=== PATIENT | male | born 1995 | race Caucasian/White ===

== ENCOUNTER 2023-01-30 19:08 | Emergency (ER) | payer SELFPAY ==
[~2023-01-30] VITALS: Ht 172.7 cm; Wt 78.0 kg
[2023-01-30 19:09] VITALS: BP 128/74
== END 2023-01-31 02:07 | disposition home or self-care (01) ==
LOC: ER 19:08
DX: F15.10 Other stimulant abuse, uncomplicated (principal)
CPT/HCPCS: 99283

== ENCOUNTER 2023-11-20 10:37 | Emergency (ER) | payer MEDICAID ==
[~2023-11-20] VITALS: Ht 170.2 cm; Wt 72.0 kg
[2023-11-20 10:39] VITALS: O2SAT 98
[2023-11-20 11:19] LABS: BASOPHILS % 0.4 % (0.0-2.0); EOSINOPHILS % 1.1 % (0.0-5.0); HEMATOCRIT. 43.4 % (42.0-52.0); HEMOGLOBIN. 14.5 g/dL (14.0-18.0); LYMPHOCYTES % 19.2 % (20.0-50.0); MEAN CORPUSCULAR HEMOGLOBIN 28.7 pg (28.0-32.0); MEAN CORPUSCULAR HGB CONC 33.3 g/dL (31.0-37.0); MEAN CORPUSCULAR VOLUME 85.9 fL (80.0-94.0); MEAN PLATELET VOLUME 8.5 fl (7.4-10.4); MONOCYTES % 6.6 % (2.0-8.0); NEUTROPHILS % 72.7 % (40.0-76.0); PLATELET 274 x1000/uL (130-400); RED BLOOD CELL COUNT 5.05 mill/uL (4.7-6.1); RED CELL DISTRIBUTION WIDTH 14.9 % (11.6-14.6); WHITE BLOOD COUNT 8.2 x1000/uL (4.5-11.0)
[2023-11-20 11:36] LABS: ALANINE AMINOTRANSFERASE 45 IU/L (10-49); ALBUMIN 4.5 g/dL (3.2-4.8); ASPARTATE AMINOTRANSFERASE 25 IU/L (<34); BILIRUBIN TOTAL 0.2 mg/dL (0.1-1.0); CALCIUM 9.1 mg/dL (8.7-10.4); CARBON DIOXIDE 24 mEq/L (21-32); CHLORIDE 106 mEq/L (98-107); CREATININE 0.6 mg/dL (0.6-1.3); ETHANOL BLOOD < 10 mg/dL (<10); GLUCOSE 100 mg/dL (70-105); POTASSIUM 4.1 mEq/L (3.5-5.1); SODIUM 137 mEq/L (136-145); UREA NITROGEN BLOOD 14 mg/dL (9-23)
[2023-11-20 12:06] LABS: CLARITY URINE CLEAR (CLEAR); COLOR URINE YELLOW (YELLOW); GLUCOSE URINE NEGATIVE (NEGATIVE); KETONES URINE NEGATIVE (NEGATIVE); LEUKOCYTE ESTERASE URINE NEGATIVE (NEGATIVE); NITRITE URINE NEGATIVE (NEGATIVE); OCCULT BLOOD URINE NEGATIVE (NEGATIVE); PH URINE 6.5 (4.5-8.0); PROTEIN URINE NEGATIVE (NEGATIVE); SPECIFIC GRAVITY URINE 1.015 (1.005-1.030); UROBILINOGEN URINE 0.2 E.U./dL (0.2-1.0)
[2023-11-20 13:59] LABS: *AMPHETAMINES SCREEN URINE NEGATIVE (NEGATIVE); *BARBITURATES SCREEN URINE NEGATIVE (NEGATIVE); *BENZODIAZEPINES SCREEN URINE NEGATIVE (NEGATIVE); *COCAINE SCREEN URINE NEGATIVE (NEGATIVE); CANNABINOID URINE SCREEN NEGATIVE (NEGATIVE); ECSTASY MDMA SCREEN URINE NEGATIVE (NEGATIVE); METHADONE URINE SCREEN Neg (NEGATIVE); OPIATES URINE SCREEN NEGATIVE (NEGATIVE); PHENCYCLIDINE URINE SCREEN NEGATIVE (NEGATIVE)
[2023-11-21 09:56] VITALS: BP 101/64; PULSE 58; RESP 16; TEMP 98.7
== END 2023-11-21 10:32 | disposition home or self-care (01) ==
LOC: ER 10:37
DX: R45.851 Suicidal ideations (principal); F15.90 Other stimulant use, unspecified, uncomplicated; F10.90 Alcohol use, unspecified, uncomplicated; Z20.822 Contact with and (suspected) exposure to COVID-19; Y90.9 Presence of alcohol in blood, level not specified
CPT/HCPCS: 36415; 80053; 80305; 80320; 81003; 85025; 87426; 99285; G0480

== ENCOUNTER 2025-01-01 15:51 | Emergency (ER) | payer MEDICAID ==
[~2025-01-01] VITALS: Ht 172.7 cm; Wt 80.0 kg
[2025-01-01 16:01] VITALS: O2SAT 99
[2025-01-01] MEDS: OLANZAPINE 10MG TABLET PO STA (18:10)
[2025-01-01 19:42] LABS: BASOPHILS % 0.5 % (0.0-2.0); EOSINOPHILS % 1.8 % (0.0-5.0); HEMATOCRIT. 41.1 % (42.0-52.0); HEMOGLOBIN. 13.4 g/dL (14.0-18.0); LYMPHOCYTES % 27.5 % (20.0-50.0); MEAN CORPUSCULAR HGB CONC 32.7 g/dL (31.0-37.0); MEAN CORPUSCULAR VOLUME 85.6 fL (80.0-94.0); MEAN PLATELET VOLUME 8.5 fl (7.4-10.4); MONOCYTES % 7.2 % (2.0-8.0); PLATELET 277 x1000/uL (130-400); RED CELL DISTRIBUTION WIDTH 14.2 % (11.6-14.6)
[2025-01-01 19:47] LABS: CHLORIDE 105 mEq/L (98-107); POTASSIUM 3.8 mEq/L (3.5-5.1); SODIUM 141 mEq/L (136-145)
[2025-01-01 19:48] LABS: CALCIUM 9.4 mg/dL (8.7-10.4); CARBON DIOXIDE 26 mEq/L (21-32)
[2025-01-01 19:53] LABS: CREATININE 0.8 mg/dL (0.6-1.3); GLUCOSE 99 mg/dL (70-105)
[2025-01-01 19:54] LABS: UREA NITROGEN BLOOD 9 mg/dL (9-23)
[2025-01-01 20:27] LABS: ETHANOL BLOOD < 10 mg/dL (<10)
[2025-01-02 03:10] LABS: CLARITY URINE CLEAR (CLEAR); COLOR URINE YELLOW (YELLOW); GLUCOSE URINE NEGATIVE (NEGATIVE); KETONES URINE NEGATIVE (NEGATIVE); LEUKOCYTE ESTERASE URINE NEGATIVE (NEGATIVE); NITRITE URINE NEGATIVE (NEGATIVE); OCCULT BLOOD URINE NEGATIVE (NEGATIVE); PROTEIN URINE NEGATIVE (NEGATIVE); SPECIFIC GRAVITY URINE 1.021 (1.005-1.030); UROBILINOGEN URINE 0.2 E.U./dL (0.2-1.0)
[2025-01-02 03:14] LABS: *AMPHETAMINES SCREEN URINE NEGATIVE (NEGATIVE)
[2025-01-02 03:15] LABS: *BARBITURATES SCREEN URINE NEGATIVE (NEGATIVE); *BENZODIAZEPINES SCREEN URINE NEGATIVE (NEGATIVE); *COCAINE SCREEN URINE NEGATIVE (NEGATIVE); CANNABINOID URINE SCREEN NEGATIVE (NEGATIVE); ECSTASY MDMA SCREEN URINE NEGATIVE (NEGATIVE); METHADONE URINE SCREEN NEGATIVE (NEGATIVE); OPIATES URINE SCREEN NEGATIVE (NEGATIVE); PHENCYCLIDINE URINE SCREEN NEGATIVE (NEGATIVE)
[2025-01-02] MEDS: LORAZEPAM 1MG TABLET PO ONE (13:48)
[2025-01-03 07:00] VITALS: BP 138/75; PULSE 85; RESP 16; TEMP 36.7; O2SAT 99
== END 2025-01-03 08:56 | disposition home or self-care (01) ==
LOC: ER 15:51
DX: R45.851 Suicidal ideations (principal); Z86.59 Personal history of other mental and behavioral disorders; Z91.148 Patient's other noncompliance with medication regimen for other reason; Z98.890 Other specified postprocedural states
CPT/HCPCS: 36415; 80048; 80305; 80320; 81003; 85025; 99285; G0480

== ENCOUNTER 2025-07-12 11:26 | Emergency (ER) | payer MEDICAID ==
[~2025-07-12] VITALS: Ht 177.8 cm; Wt 78.0 kg
[2025-07-12 11:36] VITALS: O2SAT 98
[2025-07-12 12:04] LABS: BASOPHILS % 0.6 % (0.0-2.0); EOSINOPHILS % 0.5 % (0.0-5.0); HEMATOCRIT. 43.1 % (42.0-52.0); HEMOGLOBIN. 14.3 g/dL (14.0-18.0); LYMPHOCYTES % 16.1 % (20.0-50.0); MEAN PLATELET VOLUME 8.1 fl (7.4-10.4); MONOCYTES % 5.2 % (2.0-8.0); NEUTROPHILS % 77.6 % (40.0-76.0); PLATELET 273 x1000/uL (130-400); RED BLOOD CELL COUNT 5.12 mill/uL (4.7-6.1); RED CELL DISTRIBUTION WIDTH 14.7 % (11.6-14.6)
[2025-07-12 12:15] LABS: CREATININE 0.7 mg/dL (0.6-1.3)
[2025-07-12 12:16] LABS: UREA NITROGEN BLOOD 6 mg/dL (9-23)
[2025-07-12 12:17] LABS: ASPARTATE AMINOTRANSFERASE 17 IU/L (<34)
[2025-07-12 12:18] LABS: BILIRUBIN DIRECT 0.1 mg/dL (<=3.0); BILIRUBIN TOTAL 0.5 mg/dL (0.1-1.0); PROTEIN TOTAL 7.0 g/dL (6.0-8.3)
[2025-07-12 18:02] LABS: *AMPHETAMINES SCREEN URINE NEGATIVE (NEGATIVE); *BARBITURATES SCREEN URINE NEGATIVE (NEGATIVE); *BENZODIAZEPINES SCREEN URINE NEGATIVE (NEGATIVE); *COCAINE SCREEN URINE NEGATIVE (NEGATIVE)
[2025-07-12 18:03] LABS: CANNABINOID URINE SCREEN NEGATIVE (NEGATIVE); ECSTASY MDMA SCREEN URINE NEGATIVE (NEGATIVE); METHADONE URINE SCREEN NEGATIVE (NEGATIVE); OPIATES URINE SCREEN NEGATIVE (NEGATIVE); PHENCYCLIDINE URINE SCREEN NEGATIVE (NEGATIVE)
[2025-07-13] MEDS: LORAZEPAM 1MG TABLET PO ONE (01:34)
[2025-07-13] MEDS: OLANZAPINE 5MG TABLET PO SCH (08:38)
[2025-07-13 10:57] VITALS: BP 113/77; PULSE 88; RESP 18; TEMP 36.7; O2SAT 100
== END 2025-07-13 11:10 ==
LOC: ER 11:26
DX: F20.9 Schizophrenia, unspecified (principal); F31.9 Bipolar disorder, unspecified; R45.851 Suicidal ideations; Z59.00 Homelessness unspecified; Z20.822 Contact with and (suspected) exposure to COVID-19
CPT/HCPCS: 36415; 80048; 80076; 80305; 80307; 80320; 80329; 85025; 87426; 99285; G0480